=== PATIENT | female | born 1975 | race Caucasian/White ===

== ENCOUNTER 2023-06-02 17:07 | Emergency (ER) | payer BC, MEDICAID, SELFPAY ==
--- NOTE | ~2023-06-02 | XR_ITS ---
EXAMINATION: XR HAND, LEFT CLINICAL INFORMATION: Reason for Exam L hand pain Additional Information: pt grabbed cactus plant COMPARISON: None available. TECHNIQUE: PA, lateral, and oblique views of the left hand. FINDINGS: Bone alignment is normal. No fracture or dislocation. Normal joint spaces. Normal soft tissues. No soft tissue foreign body seen. XR/XR hand LT min 3V IMPRESSION: Normal left hand.
[2023-06-02 17:21] VITALS: BP 172/90; PULSE 78; RESP 16; TEMP 36.7; O2SAT 98; BMI 21.8
--- NOTE | 2023-06-02 17:21 | ED_ITS ---
HPI - General Adult General Chief complaint: Skin/Abscess/Foreign Body Stated complaint: cactus needle in finger Source: patient Mode of arrival: ambulatory Limitations: no limitations History of Present Illness HPI narrative: 47-year-old female presents with concerns that she has a cactus needle stuck in her left hand, she was moving a cactus it fell and she grabbed her hand since then she has been having pain and swelling there was another needle however she was able to successfully remove this when. Denies numbness, tingling, fevers chills. Reports this is making her anxious. UTD on tetanus Related Data Previous Rx's ?Medication ?Instructions ?Recorded cephalexin 500 mg tablet 500 mg PO Q6H 7 days #28 tabs 06/02/23 Allergies Allergy/AdvReac Type Severity Reaction Status Date / Time brimonidine [BRIMONIDINE] Allergy Intermediate ITCHING IN Verified 06/02/23 17:22 EYES erythromycin base AdvReac Intermediate NAUSEA & Verified 06/02/23 17:22 [ERYTHROMYCIN BASE] VOMITING steroids-leave per bianka Allergy Unknown contraindic Uncoded 08/10/17 00:00 ated/galuco ma erthyromycin AdvReac Unknown canker Uncoded 08/10/17 00:00 sores, N/V Review of Systems Review of Systems: Yes all other systems are reviewed and are negative PMFSH Past Medical History Attestation statement: The following information was validated with the patient. Source: old records reviewed and nursing notes reviewed Physical Exam ED Vital Signs: Vital Signs - 24 hr 06/02/23 17:21 Temperature 98.0 F Pulse Rate 78 Respiratory Rate 16 Blood Pressure 172/90 H Pulse Oximetry 98 Oxygen Delivery Method Room Air BMI result Body Mass Index 21.8 vss Appearance: Alert.? Oriented X3.? No acute distress.?Anxious appearing Head: Normocephalic, atraumatic, no step-offs or deformities Eyes: Pupils equal, round and reactive to light.? CVS: Pulses normal.? Respiratory: No respiratory distress.? Skin: Skin warm and dry.? Normal skin color.? Normal skin turgor.? + swelling left thenar aspect of hand no visualized FB no palpable fb. normal r hand no fb. 2+ radial pulses. Normal sensaiton distally. No wrist drop. Normal hand bundle sorter. Extremities: No lower extremity edema.? No calf ttp. 5/5 strength to bilateral upper and lower extremities Back: No midline tenderness, no C-spine tenderness, full range of motion, no CVA tenderness bilaterally Neuro: Oriented X 3.? No motor deficit.? No sensory deficit. CN 2-12 intact Course Course Course Narrative: This is an RME: Additional HPI, ROS, PE not included below will be deferred to primary provider. 47 yo f presents with cactus needle in finger. Reports she took one out an hour ago, but another is there. UTD on tetanus. Reevaluation(s) Reevaluation #1: will dc from waiting room. Xray unremarkable. Plan- dc home w/ atbx. Educated patient on diagnosis and treatment plan, answered all question, patient verbalizes understanding. At this time patient will be discharged home, advised to return with new or worsening symptoms. Educated on worrisome signs and symptoms and when to return. At this time I feel comfortable discharge home. Reevaluation #2: This case was discussed with my attending who agrees with plan. Due to the location of this splinter very delicate. Warm water soaks would be more beneficial. Advised return with new or worsening symptoms. Time: 18:54 Medical Decision Making Medical Decision Making MDM Narrative: 1850 47 yo f presents thinking she has a fb in her left hand. PE + swelling left thenar aspect of hand no visualized FB no palpable fb. normal r hand no fb. 2+ radial pulses. Normal sensaiton distally. No wrist drop. Normal hand bundle sorter. Hx and pe concerning for possible retained fb. no signs of NV compromise, threat to limb, septic joint, lymphangetic spread Plan- imaging ( low probability fb will be seen explained to patient) Differential Diagnosis Differential Diagnoses: The differential diagnosis associated with the presentation includes Hx and pe concerning for possible retained fb. no signs of NV compromise, threat to limb, septic joint, lymphangetic spread Admission/Observation Consideration of admission/observation: Escalation of care including admission/observation considered Independent Interpretation I performed an independent interpretation of an: Plain X-Ray (unremarkable ) Radiology Impression Discussion of test interpretation with radiology: I have reviewed the radiologist's reading. Prescription Management I considered prescription management with: Antibiotic Critical Care Time Critical Care Time Critical Care Time: No Discharge Plan Discharge Clinical Impression: Foreign body (FB) in soft tissue Patient Disposition: Home, Self-Care Instructions: Soft Tissue Foreign Body (ED) Additional Instructions: Take your medications as prescribed. If you were prescribed antibiotics today, it is important that you take your medication to their entirety, do not skip any doses, do not finish them early. Follow-up with your primary care provider this week. Return to the emergency department with new or worsening symptoms. In case of emergency call 911 Warm water soaks to right hand 3-4 times a day. Follow up with general surgery in 1 week Prescriptions: New cephalexin 500 mg tablet 500 mg PO Q6H 7 Days Qty: 28 0RF Referrals: Niranjan Altamirano MD [Primary Care Provider] - 3 days Stand Alone Forms: Work/School Release Print Language: Luxembourgish
[2023-06-02 19:26] VITALS: BP 170/88; PULSE 82; RESP 18; TEMP 37.1; O2SAT 999
== END 2023-06-02 19:34 | disposition home or self-care (01) ==
PROVIDERS: Emergency Provider Emergency Medicine; PCP Internal Medicine
DX: M79.5 Residual foreign body in soft tissue (principal)
CPT/HCPCS: 73130; 99282; 99283

== ENCOUNTER 2024-07-09 07:42 | Outpatient (AMB) | payer BC, SELFPAY ==
--- NOTE | 2024-07-09 08:05 | MHC.OFFVIS ---
Vital Signs 07/09/24 08:15 Height 5 ft 7 in Weight 140 lb BMI 21.9 BP 146/88 H Blood Pressure Location Rt brachial Position Sitting Pulse 84 Pulse Source Pulse Oximeter Pulse Oximetry (%) 99 Oxygen Delivery Method Room Air Intake Visit Reasons: [facility] Screening, returning pt last 2019 Intake Note: NEW PATIENT for Kramer; w/ Dr. Watts 2018, Dr. Thomas 2013. Recall colo x3. CC; Pt denies any GI sx or concerns at this time. Pt reports being very anxious this morning because of upcoming ophthalmic procedure. 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 Patient was sent to us by her PCP. Last colonoscopy in 2019. Patient has a family history of CRC. Patient mom from colon cancer at age 58. Patient denies any GI concerning symptoms. Denies any cardiac or respiratory symptoms. No history of sleep apnea. No issues with anesthesia in the past. Not on any anticoagulation medication. Patient reports that she has been moving her bowels without any issues. Denies melena, hematochezia, unintentional weight loss or ribbon like stools. [facility] Medical History (Updated 07/09/24 @ 08:34 by Lorelei Engel, [facility]) Family history of colon cancer Surgical History S/P colon polypectomy H/O colonoscopy Family History Mother Colon cancer Review of Systems Const Denies weight gain and Denies weight loss ENT Reports no additional complaints, Denies dysphagia and Denies odynophagia Card Reports no additional complaints Resp Reports no additional complaints GI Denies abdominal pain, Denies belching, Denies melena, Denies bloating, Denies change in bowel habits, Denies dysphagia, Denies excessive flatus, Denies dyspepsia, Denies heartburn, Denies diarrhea, Denies loose stools, Denies nausea, Denies odynophagia and Denies vomiting Musc Reports no additional complaints Neuro Reports no additional complaints Psych Reports no additional complaints Endo Reports no additional complaints Physical Exam Vital Signs: Last Vital Signs Pulse 84 07/09/24 08:15 BP 146/88 H 07/09/24 08:15 Pulse Ox 99 07/09/24 08:15 Oxygen Delivery Method Room Air 07/09/24 08:15 BMI result Body Mass Index 21.9 Const General: healthy appearing, no acute distress and well developed Nutritional Appearance: well nourished Orientation/consciousness: patient oriented x3 Resp Effort & Inspection: normal respiratory effort, able to speak in complete sentences, no tracheal deviation and symmetric chest movement Auscultation: clear to auscultation bilaterally Cardio Rate: regular rate GI Inspection: Yes normal to inspection and No distended Palpation (GI): Soft to palpation, not firm, nontender and No hepatosplenomegaly present Auscultation: normal bowel sounds General: Yes no CVA tenderness Back/Spine/Pelvis Back: no CVA tenderness Skin General skin exam: elasticity normal, turgor normal and dry skin Neuro General: patient oriented x3 Psych Appearance: grossly normal Mental Status: mental status grossly normal Assessment & Plan Assessment & Plan (1) Family history of colon cancer: Code(s): Z80.0 - Family history of malignant neoplasm of digestive organs Category: Medical (2) Screen for colon cancer: Code(s): Z12.11 - Encounter for screening for malignant neoplasm of colon Plan Patient denies any issues with anesthesia in the past. No history of sleep apnea. Not on any anticoagulation medication. Family history of CRC. Patient denies melena, hematochezia, unintentional weight loss or ribbon like stools. Denies any dyspepsia, dysphagia or odynophagia. What to expect before during and after procedure discussed with patient. Stressed the importance of good bowel prep and clear liquid diet day before procedure. Patient will be seen after the procedure, sooner on as needed basis. She is agreeable to this plan and verbalizes understanding of instructions. She was given the opportunity to ask questions and all questions answered. Thank you for allowing me to participate in her care Medications: New bisacodyl (Dulcolax (bisacodyl)) take 4 tabs at noon the day before your colonoscopy 20 mg (4 x 5 mg) PO ONCE 1 day 4 tabs 0RF constipation Z12.11 - Encounter for screening for malignant neoplasm of colon polyethylene glycol 3350 (Miralax) As directed by gastroenterology department at [facility] 238 grams PO ONCE 238 grams 0RF Z12.11 - Encounter for screening for malignant neoplasm of colon Coding Level of Care Code New Pt Level 3 (43397) Diagnoses Family history of colon cancer Z80.0 Screen for colon cancer Z12.11 Time Spent (min) 40 Comment 30 minutes spent with patient and additional 10 minutes spent reviewing her records
[2024-07-09 08:15] VITALS: BP 146/88; PULSE 84; O2SAT 99; BMI 21.9
== END 2024-07-09 08:27 | disposition home or self-care (01) ==
LOC: HO.HGI 07:43
PROVIDERS: PCP Internal Medicine; Visit Provider Nurse Practitioner Family
DX: Z01.818 Encounter for other preprocedural examination (principal); Z12.11 Encounter for screening for malignant neoplasm of colon; Z80.0 Family history of malignant neoplasm of digestive organs
CPT/HCPCS: S0285

== ENCOUNTER → 2024-07-09 07:42 | Outpatient (BNVA) | payer BC, SELFPAY | PROVIDERS: PCP Internal Medicine; Visit Provider Nurse Practitioner Family ==

== ENCOUNTER 2024-08-04 10:13 | Emergency (ER) | payer BC, SELFPAY ==
[2024-08-04 10:23] VITALS: BP 138/90; BP 151/91; PULSE 114; PULSE 120; RESP 18; TEMP 36.8; O2SAT 95; O2SAT 96; BMI 26.5
--- NOTE | 2024-08-04 11:24 | ECG_ITS ---
Test Reason : SYNCOPE Blood Pressure : */* mmHG Vent. Rate : 90 BPM Atrial Rate : 90 BPM P-R Int : 140 ms QRS Dur : 84 ms QT Int : 364 ms P-R-T Axes : 71 75 50 degrees QTcB Int : 445 ms Normal sinus rhythm Possible Left atrial enlargement Borderline ECG No previous ECGs available Referred By: Patricia Newman Electronically Signed By: MANDO BROWN
--- NOTE | 2024-08-04 11:30 | ED.GENADULT ---
HPI - General Adult General Chief complaint: Altered Mental Status Stated complaint: RXN TO THC Time Seen by Provider: 08/04/24 11:01 History of Present Illness HPI narrative: patient is a 48-year-old female has a history of anxiety. Been under a lot of stress. Had eye surgery 2 weeks ago. There is no change in her vision. Patient was feeling very anxious elected to take some THC gummy about an hour prior to arrival after taking the got me patient feels out of body experience. Feels very agitated was worried that her blood work off. Worry that her thyroid is off. Worry she does not feel right. She has never taken this type of got me in the past. There is no chest pain there is no other recreational drugs. Patient is from home. Related Data Home Medications ?Medication ?Instructions ?Recorded ?Confirmed bromfenac 0.09 % eye drops drp ophthalmic (eye) 07/09/24 dorzolamide 22.3 mg-timolol 6.8 ophthalmic (eye) 07/09/24 mg/mL eye drops latanoprostene bunod 0.024 % eye drp ophthalmic (eye) 07/09/24 drops (Vyzulta) valsartan 160 mg tablet 160 mg PO DAILY 07/09/24 Previous Rx's ?Medication ?Instructions ?Recorded bisacodyl 5 mg tablet,delayed 20 mg (4 x 5 mg) PO ONCE 07/09/24 release (Dulcolax (bisacodyl)) constipation 1 day #4 tabs polyethylene glycol 3350 17 238 g PO ONCE #238 grams 07/09/24 gram/dose oral powder (Miralax) Allergies Allergy/AdvReac Type Severity Reaction Status Date / Time brimonidine (BRIMONIDINE) Allergy Intermediate ITCHING IN Verified 08/04/24 10:27 EYES erythromycin base AdvReac Intermediate NAUSEA & Verified 08/04/24 10:27 (ERYTHROMYCIN BASE) VOMITING steroids-leave per bianka Allergy Unknown contraindic Uncoded 07/09/24 08:07 ated/galuco ma erthyromycin AdvReac Unknown canker Uncoded 07/09/24 08:07 sores, N/V Review of Systems Review of Systems: Positive palpitation positive out of body experience Yes all other systems are reviewed and are negative PMFSH Past Medical History Attestation statement: The following information was validated with the patient. Medical History Family history of colon cancer Surgical History S/P colon polypectomy H/O colonoscopy Family History Family History Mother Colon cancer Social History Social History Advance Directives: No Advance Directives Information Provided: No Physical Exam ED Vital Signs: Vital Signs - 24 hr 08/04/24 10:23 08/04/24 13:29 Temperature 98.3 F 99.3 F Pulse Rate 114 H 88 Respiratory Rate 18 20 Blood Pressure 138/90 H 113/54 L Pulse Oximetry 95 97 Oxygen Delivery Method Room Air Room Air BMI result Body Mass Index 26.5 Appearance: Alert. Oriented X3. No acute distress. Eyes: Pupils equal, round and reactive to light. ENT: Pharynx normal. Neck: Normal inspection. Neck supple. No lymph nodes noted. No crepitus CVS: Normal heart rate and rhythm. Pulses normal. Normal S1 and S2 Respiratory: No respiratory distress. Breath sounds normal. No Wheezing. No rales Abdomen: Soft and nontender. No rigidity. No distention. good BS x4 Skin: Skin warm and dry. Normal skin color. Normal skin turgor. Extremities: No lower extremity edema. Neurovascular intact to all extremities. No Lacerations. No Rash Neuro: Oriented X 3. No motor deficit. No sensory deficit. Moving all extermities. No slurred speech Medical Decision Making Medical Decision Making [facility] Narrative: patient's symptom improved with time she did not want a benzo. My interpretation of her EKG showed a sinus rhythm heart rate was 90 ME QRS QTC normal no acute ST segment elevation electrolytes are unremarkable. Patient's hemoglobin is normal. No acute distress. In stable condition. Symptoms resolved. Question related to THC. Patient states that she is not going to take that again. Currently in stable condition. Differential Diagnosis Differential Diagnoses: The differential diagnosis associated with the presentation includes Anxiety, THC use, dehydration Admission/Observation Consideration of admission/observation: Escalation of care including admission/observation considered Lab Data [facility] Lab Attestation statement: I reviewed the patient's lab results. 08/04/24 12:43 08/04/24 12:43 Labs: Lab Results 08/04/24 Range/Units 12:43 WBC 5.0 (4.8-10.8) X10*3/uL RBC 4.10 L (4.20-5.50) X10*6/uL Hgb 12.1 (12.0-16.0) g/dl Hct 37.1 (37.0-47.0) % MCV 90.5 (80.0-98.0) fL MCH 29.5 (27.0-33.0) pg MCHC 32.6 (31.0-35.0) g/dl RDW 13.0 (11.0-16.0) % Plt Count 195 (160-400) X10*3/uL MPV 9.7 (9.4-12.3) fL Immature Gran % (Auto) 0.4 (0.0-0.4) % Neut % (Auto) 75.3 H (45-73) % Lymph % (Auto) 15.3 L (20-40) % [place] % (Auto) 6.8 (2-11) % Eos % (Auto) 1.6 (0-4) % Baso % (Auto) 0.6 (0-2) % Lymph # (Auto) 0.8 L (1.2-4.9) X10*3/uL [place] # (Auto) 0.3 (0.1-1.2) X10*3/uL Eos # (Auto) 0.1 (0.0-0.4) X10*3/uL Baso # (Auto) 0.0 (0.0-0.2) X10*3/uL Abs Immat Gran (auto) 0.02 (0.00-0.03) X10*3/uL Absolute Neuts (auto) 3.8 (2.0-8.3) x10*3/uL Absolute Nucleated RBC 0.000 (0.0-0.012) X10*3/uL Nucleated RBC % (auto) 0.0 (0.0-0.2) /100WBC Sodium 140 (135-145) mmol/L Potassium 4.8 (3.3-5.1) mmol/L Chloride 109 H (96-108) mmol/L Carbon Dioxide 25 (22-29) mmol/L Anion Gap 11 L (12-20) BUN 21 H (9-16) mg/dL Creatinine 0.90 (0.5-1.4) mg/dL Estim Creat Clear Calc 79.9 Estimated GFR > 60 Random Glucose 104 (60-115) mg/dL Calcium 9.5 (8.4-10.2) mg/dL Total Bilirubin 0.2 (0.0-1.0) mg/dL Direct Bilirubin < 0.2 (0.0-0.5) mg/dL AST 43 H (5-31) U/L ALT 45 H (0-31) U/L Alkaline Phosphatase 71 (39-117) U/L Troponin I High Sens 3.7 (<3.5-17.0) ng/L Total Protein 6.8 (6.5-8.0) g/dL Albumin 4.2 (3.5-5.0) g/dL Lipase 34 (8-78) U/L TSH 1.07 (0.32-4.0) uIU/mL Independent Interpretation I performed an independent interpretation of an: EKG ( sinus heart rate is 90 ME QRS QTC normal no acute ST segment elevation.) Radiology Impression Discussion of test interpretation with radiology: I have reviewed the radiologist's reading. Social Determinants Patient?s care significantly limited by Social Determinants of Health including: Problems related to primary support group Discharge Plan Discharge Clinical Impression: Anxiety Patient Disposition: Home, Self-Care Instructions: Anxiety (ED) Prescriptions: No Action Vyzulta 0.024 % drops ophthalmic (eye) dorzolamide-timolol 22.3-6.8 mg/mL drops ophthalmic (eye) bromfenac 0.09 % drops ophthalmic (eye) valsartan 160 mg tablet 160 mg PO DAILY bisacodyl [Dulcolax (bisacodyl)] 5 mg tablet,delayed release (DR/EC) 20 mg PO ONCE 1 Days Qty: 4 0RF Rx Instructions: take 4 tabs at noon the day before your colonoscopy polyethylene glycol 3350 [Miralax] 17 gram/dose powder 238 g PO ONCE Qty: 238 0RF Rx Instructions: As directed by gastroenterology department at [facility] Referrals: Niranjan Altamirano MD [Primary Care Provider, Internal Medicine] - 3 days Print Language: Mauritian
[2024-08-04 12:47] LABS: MANUAL DIFF FLAG NO
[2024-08-04 13:02] LABS: Basophils Percent Auto 0.6 % (0-2); Eosinophils Absolute Auto 0.1 X10*3/uL (0.0-0.4); Eosinophils Percent Auto 1.6 % (0-4); Hematocrit 37.1 % (37.0-47.0); Hemoglobin 12.1 g/dl (12.0-16.0); Imm Gran Abs Auto 0.02 X10*3/uL (0.00-0.03); Imm Gran Pct Auto 0.4 % (0.0-0.4); Lymphocytes Absolute Auto 0.8 X10*3/uL (1.2-4.9); Lymphocytes Percent Auto 15.3 % (20-40); Mean Corpuscular HGB Conc 32.6 g/dl (31.0-35.0); Mean Corpuscular Hemoglobin 29.5 pg (27.0-33.0); Mean Corpuscular Volume 90.5 fL (80.0-98.0); Mean Platelet Volume 9.7 fL (9.4-12.3); Monocytes Absolute Auto 0.3 X10*3/uL (0.1-1.2); Monocytes Percent Auto 6.8 % (2-11); Neutrophils Absolute Auto 3.8 x10*3/uL (2.0-8.3); Neutrophils Percent Auto 75.3 % (45-73); Platelet Count 195 X10*3/uL (160-400)
[2024-08-04 13:19] LABS: Alanine Aminotransferase 45 U/L (0-31); Albumin Level 4.2 g/dL (3.5-5.0); Alkaline Phosphatase 71 U/L (39-117); Anion Gap 11 (12-20); Aspartate Amino Transferase 43 U/L (5-31); Bilirubin Direct < 0.2 mg/dL (0.0-0.5); Bilirubin Total 0.2 mg/dL (0.0-1.0); Blood Urea Nitrogen 21 mg/dL (9-16); Calcium 9.5 mg/dL (8.4-10.2); Carbon Dioxide 25 mmol/L (22-29); Chloride 109 mmol/L (96-108); Creatinine Clr Calc Pharmacy 79.9; Estimated Glomerular Filt Rate > 60; Glucose Random 104 mg/dL (60-115); Lipase 34 U/L (8-78); Potassium 4.8 mmol/L (3.3-5.1); Sodium 140 mmol/L (135-145); Total Protein 6.8 g/dL (6.5-8.0)
[2024-08-04 13:24] LABS: Troponin-I High Sensitivity 3.7 ng/L (<3.5-17.0)
[2024-08-04 13:29] VITALS: BP 113/54; PULSE 88; RESP 20; TEMP 37.4; O2SAT 97
[2024-08-04 13:38] LABS: TSH reflex Free T4 1.07 uIU/mL (0.32-4.0)
[2024-08-04 14:28] VITALS: BP 113/54; PULSE 88; RESP 20; TEMP 37.4; O2SAT 97
== END 2024-08-04 14:28 | disposition home or self-care (01) ==
PROVIDERS: Emergency Provider Emergency Medicine Emergency Medical Services; PCP Internal Medicine
DX: F41.9 Anxiety disorder, unspecified (principal); F43.9 Reaction to severe stress, unspecified; R45.1 Restlessness and agitation; R55 Syncope and collapse; Z79.899 Other long term (current) drug therapy
CPT/HCPCS: 36415; 80048; 80076; 83690; 84443; 84484; 85025; 93005; 96374; 99284

== ENCOUNTER → 2024-08-04 11:24 | Outpatient (BNV) | payer BC, SELFPAY | PROVIDERS: Emergency Provider Emergency Medicine Emergency Medical Services; PCP Internal Medicine; Visit Provider Internal Medicine | DX: R55 Syncope and collapse (principal) | CPT/HCPCS: 93010 ==

== ENCOUNTER 2025-01-23 08:01 | Day surgery (SDC) | payer BC, SELFPAY ==
--- NOTE | 2025-01-21 10:46 | HO.ANESPROP2 ---
Documented by User: Enedina Gilbert NP 01/21/25 10:46 HPI - Anesthesia Eval Consult details Narrative: 49yo F for Colonoscopy PMFSH Active Problems Active Problems: All Active Problems Family history of colon cancer (Acute) Past Medical History Medical History HTN (hypertension) Anxiety Family history of colon cancer Family History Family History Mother Colon cancer Surgical History Surgical History H/O colonoscopy Social History Social History Patient Tobacco Use Status: Never used Tobacco Use of substances other than those prescribed or required for medical reasons: No Advance Directives: No Advance Directives Information Provided: Yes Meds Allergies Allergy/AdvReac Type Severity Reaction Status Date / Time brimonidine (BRIMONIDINE) Allergy Intermediate ITCHING IN Verified 08/04/24 10:27 EYES erythromycin base AdvReac Intermediate NAUSEA & Verified 01/21/25 14:07 (ERYTHROMYCIN BASE) VOMITING/canker sores steroids-leave per bianka Allergy Intermediate contraindic Uncoded 01/21/25 14:06 ated/galuco ma Home Medications ?Medication ?Instructions ?Recorded ?Confirmed ?Last Taken ?Type bromfenac 0.09 % eye drops 1 drp ophthalmic (eye) DAILY 07/09/24 01/21/25 Unknown History dorzolamide 22.3 mg-timolol 6.8 1 drp ophthalmic (eye) DAILY 07/09/24 01/21/25 Unknown History mg/mL eye drops latanoprostene bunod 0.024 % eye 1 drp ophthalmic (eye) DAILY 07/09/24 01/21/25 Unknown History drops (Vyzulta) valsartan 160 mg tablet 160 mg PO DAILY 07/09/24 01/21/25 Unknown History amlodipine 5 mg tablet 5 mg PO DAILY 01/21/25 01/23/25 01/23/25 History Assessment and Plan Assessment Anesthesia Assessment: Chart Reviewed Documented by User: Roque Aparicio MD 01/23/25 09:37 COUNT INCLUDES THE [facility] Past Medical History Medical History HTN (hypertension) Anxiety Family history of colon cancer Functional capacity: independent ambulation Family History Family History Mother Colon cancer Family history of problems with anesthesia: No Surgical History Surgical History H/O colonoscopy History of Problems with Anesthesia: No Social History Social History Patient Tobacco Use Status: Never used Tobacco Use of substances other than those prescribed or required for medical reasons: No Advance Directives: No Advance Directives Information Provided: Yes Meds Allergies Allergy/AdvReac Type Severity Reaction Status Date / Time brimonidine (BRIMONIDINE) Allergy Intermediate ITCHING IN Verified 08/04/24 10:27 EYES erythromycin base AdvReac Intermediate NAUSEA & Verified 01/21/25 14:07 (ERYTHROMYCIN BASE) VOMITING/canker sores steroids-leave per bianka Allergy Intermediate contraindic Uncoded 01/21/25 14:06 ated/galuco ma Home Medications ?Medication ?Instructions ?Recorded ?Confirmed ?Last Taken ?Type bromfenac 0.09 % eye drops 1 drp ophthalmic (eye) DAILY 07/09/24 01/21/25 Unknown History dorzolamide 22.3 mg-timolol 6.8 1 drp ophthalmic (eye) DAILY 07/09/24 01/21/25 Unknown History mg/mL eye drops latanoprostene bunod 0.024 % eye 1 drp ophthalmic (eye) DAILY 07/09/24 01/21/25 Unknown History drops (Vyzulta) valsartan 160 mg tablet 160 mg PO DAILY 07/09/24 01/21/25 Unknown History amlodipine 5 mg tablet 5 mg PO DAILY 01/21/25 01/23/25 01/23/25 History Exam Exam Date and Time: 01/23/25 Airway Mallampati Class: I TM Dist: >3cm Neck ROM: Full Heart: normal Lungs: normal Other: normal Assessment and Plan Assessment Anesthesia Assessment: Anesthesia Plan Discussed Final Anesthetic Review Family History of Problems with Anesthesia: No History of Problems with Anesthesia: No NPO: Yes ASA Class: I Final Preanesthetic Review: No Changes in Pt Med Stat, Meds/Allgs Chart Reviewed, Consent Obtained/Reviewed and Anes Risks/Benef Reviewed Patient Risk: Low Procedure Risk: Low Anesthetic Plan Anesthetic Plan: MAC: Disposition: Standard PACU
[2025-01-21 14:08] VITALS: BMI 21.9
[2025-01-23 08:59] VITALS: BMI 27.4
[2025-01-23 09:18] VITALS: BP 136/91; PULSE 78; RESP 16; TEMP 37.2; O2SAT 99
[2025-01-23] MEDS: Lactated Ringers 1,000 ML 100 ML IVCONT (09:21)
--- NOTE | 2025-01-23 09:52 | MHC.SHP ---
Pre-Procedural Eval Section A - 24 Hr Update-Section A only Date of Service: 01/23/25 Section B - Complete if H&P > 30 days Chief Complaint: screening Relevant Family History (Specify if Yes): Yes Relevant Social History: None Present Medications: see Short Stay Collaborative assessment Medical History: Significant History (htn) History of Previous Operations: Relevant previous surgery/procedure and date(s) (S/P colon polypectomy H/O colonoscopy) Allergies: Allergies Allergy/AdvReac Type Severity Reaction Status Date / Time brimonidine (BRIMONIDINE) Allergy Intermediate ITCHING IN Verified 08/04/24 10:27 EYES erythromycin base AdvReac Intermediate NAUSEA & Verified 01/21/25 14:07 (ERYTHROMYCIN BASE) VOMITING/canker sores steroids-leave per bianka Allergy Intermediate contraindic Uncoded 01/21/25 14:06 taylerd/marino anvarro Review of Systems Sugical H&P ROS: Negative: Constitution, Cardiovascular, Respiratory, Neurological, Psychiatric, Hem-Onc, Allergic/Immunologic, Gastrointestinal, Genitourinary, Musculoskeletal, Integumentary, Endocrine and Eyes/Ears/Nose/Throat Exam Surgical H&P Exam: Normal: HEENT, Normal: Heart, Normal: Lungs, Normal: Extremities, Normal: Abdomen, Normal: Skin and Normal: Neurological Plan Diagnosis/Plan: Unchanged I have reviewed the history and physical and performed a pertinent physical examination on my patient. No changes have occurred unless specified. Time Spent With Patient Time: Total time managing care of this patient today ____ minutes.
--- NOTE | 2025-01-23 10:18 | P.OPN-COLO_ITS ---
Colonoscopy Operative Note Operative Note Date of Service: 01/23/25 Narrative: Operative Information Procedure Description: Colonoscopy Indication: FH of CRC Anesthesia: MAC COLONOSCOPY Instrument: Olympus variable stiffness pediatric scope 190L Colonoscopy Monitoring: Vital signs and clinical assessment, continuous EKG monitoring, Pulse oximetry, Carbon Dioxide monitoring and blood pressure monitoring were done throughout the procedure. Colon withdrawal time was 11 minutes. Procedure: The patient was placed in the left lateral decubitis position and pre-procedure medications were administered. After a digital rectal examination of the ano-rectum, the video colonoscope was inserted into the rectum and advanced through the colon to the cecum/TI. The colonoscope was slowly withdrawn in a retrograde panoramic fashion and the colon mucosa was carefully examined including a retroflexed view of the rectum. Findings and interventions are described below. Procedure Difficulty: easy Findings: Terminal Ileum-normal Cecum:normal Ascending Colon: 10 mm sessile polyp lifted with eleview and removed with cold snare and x 1 clip applied for hemostasis Transverse Colon -normal Descending Colon:normal Sigmoid Colon: normal Rectum: Retroflexion with small internal hemorrhoids seen, grade I Anorectum - normal Intervention: cold snare and eleview Colon preparation: [place] Bowel Preparation Scale Right colon; 2 Transverse colon: 2 Left colon; 2 (0 = Unprepared colon segment with mucosa not seen due to solid stool that cannot be cleared. 1 = Portion of mucosa of the colon segment seen, but other areas of the colon segment not well seen due to staining, residual stool and/or opaque liquid. 2 = Minor amount of residual staining, small fragments of stool and/or opaque liquid, but mucosa of colon segment seen well. 3 = Entire mucosa of colon segment seen well with no residual staining, small fragments of stool or opaque liquid) Impression and Post Procedure Diagnosis: colon polyp x 1 internal hemorrhoids Plan: High fiber diet leaflet Avoid straining at stool, epsom salts and sitz bath, anusol supps or cream Repeat Colonoscopy in 5 years or earlier if clinically indicated Above findings were reviewed with the patient and relevant handouts were provided if indicated.
[2025-01-23 10:22] VITALS: BP 78/41; PULSE 68; RESP 16; TEMP 36.5; O2SAT 95
[2025-01-23 10:30] VITALS: BP 100/57; PULSE 61; RESP 16; O2SAT 98
[2025-01-23 10:45] VITALS: BP 110/65; PULSE 56; RESP 16; O2SAT 98
== END 2025-01-23 11:39 | disposition home or self-care (01) ==
PROVIDERS: PCP Internal Medicine; Visit Provider Internal Medicine Gastroenterology
PROC: 0DJD8ZZ Inspection of Lower Intestinal Tract, Via Natural or Artificial Opening Endoscopic (ICD-10-PCS; CPT 45378; principal; 2025-01-23 10:50)
DX: Z12.11 Encounter for screening for malignant neoplasm of colon (principal); Z80.0 Family history of malignant neoplasm of digestive organs; K64.0 First degree hemorrhoids; D12.2 Benign neoplasm of ascending colon
CPT/HCPCS: 45385; 45381; 88305; J2704

== ENCOUNTER → 2025-01-23 08:01 | Outpatient (BNV) | payer BC, SELFPAY | PROVIDERS: PCP Internal Medicine; Visit Provider Internal Medicine Gastroenterology | DX: Z12.11 Encounter for screening for malignant neoplasm of colon (principal); K63.5 Polyp of colon; K64.0 First degree hemorrhoids | CPT/HCPCS: 45385 ==